=== PATIENT | female | born 1995 | race Caucasian/White ===

== ENCOUNTER 2022-07-19 16:00 | Emergency (ER) | payer OTHER, SELFPAY ==
[2022-07-19 16:08] VITALS: BP 137/72; PULSE 83; RESP 16; TEMP 36.6; O2SAT 98
[2022-07-19 16:15] VITALS: BP 137/72; PULSE 83; RESP 16; TEMP 36.6; O2SAT 98
--- NOTE | 2022-07-19 16:21 | ED.URI ---
HPI - URI/Sore Throat General Chief Complaint: Upper Respiratory Infection Stated Complaint: uri Time Seen by Provider: 07/19/22 16:22 Source: patient and RN notes reviewed Mode of arrival: ambulatory Limitations: no limitations History of Present Illness HPI Narrative: 27-year-old female presents concern for general malaise, nasal congestion, rhinorrhea, cough, body aches, chills, sweats. Reports productive cough. Reports she has taken Tylenol. MD elicited complaint: cough Related Data Home Medications Medication Instructions Recorded Confirmed sertraline 50 mg tablet 50 mg PO DAILY 07/19/22 07/19/22 Allergies Allergy/AdvReac Type Severity Reaction Status Date / Time sumitriptan Allergy Mild Dizziness Uncoded 07/19/22 16:33 Review of Systems Review of Systems: CONSTITUTIONAL: Reports malaise, chills, sweats EYES: Denies visual changes, redness, or discharge. ENT: Reports rhinorrhea, congestion, and sore throat. CARDIOVASCULAR: Denies chest pain, palpitations, or edema. RESPIRATORY: Reports cough. Denies dyspnea. GASTROINTESTINAL: Denies abdominal pain, nausea, vomiting, diarrhea SKIN: Denies rash or itching. MUSCULOSKELETAL: Reports myalgia. NEUROLOGIC: Reports headache. All systems reviewed & are unremarkable except as noted in HPI and below PMFSH Comments At time of signature, agree with nursing past medical, surgical, social and family history. There is no relevant family history pertinent to the presenting complaint Exam Narrative: GENERAL: Well-appearing, well-nourished, and in no acute distress. HEAD: Normocephalic EYES: PERRLA, conjunctivae clear ENT: Nares clear, turbinates edematous and erythematous, clear discharge. Mucous membranes moist. TM pearly rene with sharp light reflex bilaterally; no tragal tenderness. Oropharynx not erythematous without lesions. Tonsils not enlarged and without exudate, no drooling, no hoarseness, no trismus, uvula midline. NECK: Supple. No lymphadenopathy CHEST: Clear to auscultation, breath sounds equal. No wheezing, rhonchi, rales, or stridor. No respiratory distress, speaks in full sentences. HEART: Regular rate and rhythm. No murmur heard. SKIN: Warm, dry, no rash. NEURO: Alert and oriented x3. PSYCH: Normal mood and affect Course Course Emergency Course: Patient is aware of diagnosis, understands and agrees to treatment plan. Anticipatory guidance given. Patient agrees to follow-up as directed and is aware of reasons to seek care at the emergency department. Portions of this record may have been created with voice recognition software Level of Care: Express Care Visit Vital Signs Vital signs: Vital Signs Temperature 97.9 F 07/19/22 16:08 Pulse Rate 83 07/19/22 16:08 Respiratory Rate 16 07/19/22 16:08 Blood Pressure 137/72 07/19/22 16:08 Pulse Oximetry 98 07/19/22 16:08 Oxygen Delivery Room Air 07/19/22 16:08 Temperature 97.9 F 07/19/22 16:15 Pulse Rate 83 07/19/22 16:15 Respiratory Rate 16 07/19/22 16:15 Blood Pressure 137/72 07/19/22 16:15 Pulse Oximetry 98 07/19/22 16:15 Oxygen Delivery Room Air 07/19/22 16:15 Reviewed. MDM - URI/Sore Throat MDM Narrative Medical decision making narrative: Differential diagnosis considered: Palafox virus, strep pharyngitis, allergic rhinitis, upper respiratory tract infection, sinusitis, rhinosinusitis, nasopharyngitis. viral pharyngitis, otitis media, otitis externa, pneumonia, bronchitis, viral cough syndrome, viral syndrome, and influenza. Exam findings show no acute concerns or changes; patient is non-toxic appearing and is in no distress. Patient is appropriate for outpatient treatment and follow-up. Lab Data Attestation: I reviewed the patient's lab results. Critical Care Time Critical Care Time Critical Care Time: No Discharge Plan Discharge Clinical Impression: COVID Patient Disposition: Home, Self-Care Condition: Stable Instructions: How to Rec
== END 2022-07-19 16:37 | disposition home or self-care (01) ==
PROVIDERS: Emergency Provider Nurse Practitioner
DX: U07.1 COVID-19 (principal)
CPT/HCPCS: 87426; 87804; 99203; C9803; G0463